=== PATIENT | female | born 1980 | race Caucasian/White ===

== ENCOUNTER 2016-10-26 08:33 | Emergency (ER) | payer SELFPAY ==
--- NOTE | 2016-10-26 10:41 | PD ---
HPI Chief Complaint Decreased movement Date Seen: Oct 26, 2016 Time Seen: 09:20 (Doyle Powell MD R1) Travel History International Travel<30 Days: No Contact w/Intl Traveler<30Days: No Known Affected Area: No (Doyle Powell MD R1) History of Present Illness HPI 36-year-old at 39/6 weeks gestation presenting for decreased movement and contractions. She started noticing irregular contractions last night. They are irregularly spaced, not very intense. She noticed that the baby has not been moving as much for the last day and a half, prompting a call to her [employer] who recommended she presented here for evaluation. Denies vaginal bleeding, leakage of fluid, dysuria, fevers or chills, chest pain, shortness of breath. (Doyle Powell MD R1) History Past Medical History Medical History: Denies Significant Hx (Doyle Powell MD R1) Obstetric History Obstetric History All deliveries by , first for indication, subsequent to for repeat All the transverse Last section complicated hemorrhage (Doyle Powell MD R1) Past Surgical History Narrative Surgical No previous surgery besides C-sections (Doyle Powell MD R1) Social History Alcohol Use: No Tobacco Use: No Substance Abuse: No (Doyle Powell MD R1) Allergies-Medications (Allergen,Severity, Reaction): Uncoded Allergies: red food dye (Adverse Reaction, Unknown, abdominal pain, 10/26/16) Review of Systems Except as stated in HPI: all other systems reviewed are Neg (Doyle Powell MD R1) Physical Exam Narrative GENERAL: Well-nourished, well-developed patient. SKIN: Warm and dry. HEAD: Normocephalic and atraumatic. EYES: No scleral icterus. No injection or drainage. ENT: No nasal drainage noted. Mucous membranes pink. Airway patent. CARDIOVASCULAR: Regular rate and rhythm without murmurs, gallops, or rubs. RESPIRATORY: Breath sounds equal bilaterally. No accessory muscle use. ABDOMEN/GI: Abdomen soft, non-tender, no rebound, no guarding GENITOURINARY: Cervix: posterior Dilation: closed Effacement: thick Presentation: high Membranes: intact Contractions: irregular every 20-30 mins FHT's: Category: 1 Baseline: 110 Reactive: Y Variability: moderate Decels: N EXTREMITIES: No cyanosis or edema. NEUROLOGICAL: Awake and alert. Motor and sensory grossly within normal limits. Normal speech. (Doyle Powell MD R1) Data Data Vital Signs Reviewed: Yes Orders Vital Signs (Adult) .ON ADMISSION (10/26/16 09:41) ^ Labor Status (10/26/16 09:41) ^ Non Stress Test (10/26/16 09:41) ^ Hydration (10/26/16 09:41) (Doyle Powell MD R1) MDM Medical Record Reviewed: Yes Narrative Course / MDM 36-year-old at 39/6 weeks gestation presenting with: #1 IUP Category 1 tracing, reassuring #2 decreased movement NST reactive with good accelerations, reassuring - Patient are to scheduled for section on 10/30 - kick count instructions - Follow up in office on Saturday for preop visit with Dr. Anthony #3 [place] Yu contractions Monitor showing very irregular contractions, patient denies having contraction pain while in OB ER - Counseled on early labor signs - Follow up with Dr. Anthony as above dw Dr. Madison (Doyle Powell MD R1) Diagnosis Diagnosis: Primary Impression: Decreased movement Qualified Code: O36.8130 - Decreased movement, third trimester, not applicable or unspecified fetus Additional Impression: Du[place]in Yu' contraction Disposition: 01 DISCHARGE HOME Condition: Good Patient Instructions: Movement (ED), Early Labor Signs (ED) Collaborating MD Comments Patient with false labor. Previous . I spoke with Oscar on the telephone who has scheduled this patient for repeat in [place] on Saturday. Patient was not aware of this and she will be seen by him on Saturday for pre-op. (Melva Madison MD) Doyle Powell MD R1 Oct 26, 2016 10:41 Melva Madison MD Oct 26, 2016 17:16
[2016-10-26] MEDS ORDERED: ceFAZolin 2 GM PREMIX 50 ML IV SCH (11:00)
== END 2016-10-26 14:58 | disposition home or self-care (01) ==
LOC: HOBED 08:33
DX: O36.8130 Decreased fetal movements, third trimester, not applicable or unspecified (principal); O47.1 False labor at or after 37 completed weeks of gestation; Z3A.39 39 weeks gestation of pregnancy
CPT/HCPCS: 99281